=== PATIENT | female | born 1955 | race Caucasian/White ===

== ENCOUNTER 2017-07-06 18:15 | Emergency (ER) | payer BC ==
[~2017-07-06] VITALS: Ht 172.7 cm; Wt 68.0 kg
[2017-07-06] MEDS ORDERED: HYDROcodone/APAP 5/325 TABLET PO ONE (19:00)
[2017-07-06] MEDS ORDERED: HYDROcodone/APAP 5/325 TABLET ONE (19:21)
[2017-07-06] MEDS ORDERED: ACETAMINOPHEN 325 MG TABLET ONE (19:45)
[2017-07-06] MEDS ORDERED: FLUO20CA19 PO (19:52)
[2017-07-06] MEDS ORDERED: ACETAMINOPHEN 325 MG TABLET PO ONE (20:00)
[2017-07-06 20:58] VITALS: BP 154/95
[2017-07-06] MEDS ORDERED: IBUPROFEN 200 MG TABLET PO ONE (21:21)
[2017-07-06] MEDS ORDERED: IBUPROFEN 200 MG TABLET ONE (21:46)
== END 2017-07-06 22:04 | disposition home or self-care (01) ==
LOC: ED 21:50
DX: S63.521A Sprain of radiocarpal joint of right wrist, initial encounter (principal); S20.211A Contusion of right front wall of thorax, initial encounter; S50.01XA Contusion of right elbow, initial encounter; S50.811A Abrasion of right forearm, initial encounter; W22.8XXA Striking against or struck by other objects, initial encounter; Y93.89 Activity, other specified; Y92.89 Other specified places as the place of occurrence of the external cause; Y99.8 Other external cause status
CPT/HCPCS: 29125; 70450; 72125